=== PATIENT | female | born 1950 | race Caucasian/White ===

== ENCOUNTER 2020-07-01 12:26 | Emergency (ER) | payer OTHER ==
[2020-07-01 13:28] LABS: Protime INR 0.96
--- NOTE | 2020-07-01 13:47 | RAD REPORT ---
EXAM DESCRIPTION: RAD - Chest Single View - 07/01/2020 1:32 pm CLINICAL HISTORY: CHEST PAIN COMPARISON: None TECHNIQUE: AP portable chest image was obtained 07/01/2020 1:32 pm . FINDINGS: Lung volumes are low. No focal lung parenchymal process seen. Widened mediastinum seen due to shallow inspiration portable technique. Mediastinal mass is not suspected. Heart and vasculature are normal. No measurable pleural effusion and no pneumothorax. No acute bony abnormality seen. No ac nirmala aortic findings suspected. IMPRESSION: No acute cardiopulmonary process. Exam is limited somewhat by shallow inspiration portable technique. As clinical findings warrant, fol low-up two-view examination could be performed for further assessment.
[2020-07-01 13:49] LABS: Absolute Lymphocytes (CBC) 1.8 K/uL (0.7-4.9); Basophils % 0.8 % (0-1.3); Hematocrit 39.6 % (36.0-45.0); Lymphocytes % 31.4 % (15.3-44.8); MPV 9.6 fL (7.6-11.3); RBC Red Blood Cell Count 4.14 M/uL (3.86-4.86)
[2020-07-01 14:12] LABS: ALT/SGPT 39 U/L (12-78); AST/SGOT 17 U/L (15-37); Alkaline Phosphatase 91 U/L (45-117); BUN Blood Urea Nitrogen 17 mg/dL (7-18); Bicarbonate 26 mmol/L (21-32); Bilirubin Direct 0.2 mg/dL (0-0.2); Bilirubin Total 0.5 mg/dL (0.2-1.0); Glucose Level 90 mg/dL (74-106); Magnesium 2.2 mg/dL (1.8-2.4); NT PRO-BNP 89 pg/mL (<125); Potassium 4.3 mmol/L (3.5-5.1); Protein, Total 7.6 g/dL (6.4-8.2); Sodium Level 140 mmol/L (136-145); Troponin (Emerg Dept Use Only) < 0.02 ng/mL (0.0-0.045)
--- NOTE | 2020-07-01 16:02 | ER ---
Nurse's Notes [facility] Name: Natalie Valles Age: 70 yrs Sex: Female : 1950 Arrival Date: 07/01/2020 Time: 12:29 Bed 8 Private MD: Ramo Mata E Diagnosis: Chest pain, unspecified Presentation: 07/01 12:33 Chief complaint: Patient states: 2 episodes of CP that last 15-20 min. since last ll1 night. Pain radiates into neck area. None now. No cough or fever. Coronavirus screen: Client denies travel out of the [place] in the last 14 days. At this time, the client does not indicate any symptoms associated with coronavirus-19. Ebola Screen: Patient denies travel to an Ebola-affected area in the 21 days before illness onset. Initial Sepsis Screen: Does the patient meet any 2 criteria? No. Patient's initial sepsis screen is negative. Risk Assessment: Do you want to hurt yourself or someone else? Patient reports no desire to harm self or others. Onset of symptoms was June 30, 2020. 12:33 Method Of Arrival: Ambulatory ll1 12:33 Acuity: YULIYA 3 ll1 13:00 Initial Sepsis Screen: Does the patient have a suspected source of infection? No. sv Patient's initial sepsis screen is negative. Historical: - Allergies: 12:33 No Known Allergies; ll1 - PMHx: 12:33 Arthritis; ll1 - PSHx: 12:33 nodule removed from thumb; Tubal ligation; ll1 - Immunization history:: Flu vaccine is not up to date. - Social history:: Smoking status: Patient denies any tobacco usage or history of. Screenin:40 Abuse screen: Denies threats or abuse. Denies injuries from another. Nutritional sv screening: No deficits noted. Tuberculosis screening: No symptoms or risk factors identified. Fall Risk None identified. Assessment: 12:40 General: Appears in no apparent distress. comfortable, well developed, Behavior is sv calm, cooperative, appropriate for age. Pain: Complains of pain in anterior aspect of left upper chest and left breast Pain radiates to left posterior aspect of neck and left lateral aspect of neck Pain began 1 day ago. Is intermittent. Neuro: Level of Consciousness is awake, alert, obeys commands, Oriented to person, place, time, situation, Moves all extremities. Full function. Cardiovascular: Patient's skin is warm and dry. Rhythm is sinus bradycardia. Respiratory: Airway is patent Respiratory effort is even, unlabored, Respiratory pattern is regular, symmetrical. Derm: Skin is normal. 14:15 Reassessment: Patient appears in no apparent distress at this time. No changes from sv previously documented assessment. Patient and/or family updated on plan of care and expected duration. Pain level reassessed. Patient is alert, oriented x 3, equal unlabored respirations, skin warm/dry/pink. 15:20 Reassessment: Patient appears in no apparent distress at this time. No changes from sv previously documented assessment. Patient and/or family updated on plan of care and expected duration. Pain level reassessed. Patient is alert, oriented x 3, equal unlabored respirations, skin warm/dry/pink. 16:30 Reassessment: Patient appears in no apparent distress at this time. No changes from sv previously documented assessment. Patient and/or family updated on plan of care and expected duration. Pain level reassessed. Patient is alert, oriented x 3, equal unlabored respirations, skin warm/dry/pink. Vital Signs: 12:33 BP 164 / 85; Pulse 77; Resp 17; Temp 98.5; Pulse Ox 98% ; Weight 79.83 kg; Height 5 ft. ll1 5 in. (165.10 cm); Pain 0/10; 13:00 BP 146 / 66; Pulse 57; Resp 17; sv 13:45 BP 141 / 62; Pulse 61; Resp 13; Pulse Ox 98% ; sv 15:22 BP 145 / 70; Pulse 60; Resp 18; Pulse Ox 100% ; sv 16:31 BP 136 / 67; Pulse 55; Resp 18; Pulse Ox 99% on R/A; em 12:33 Body Mass Index 29.29 (79.83 kg, 165.10 cm) ll1 ED Course: 12:29 Patient arrived in ED. mr 12:29 Ramo Mata MD is Private Physician. mr 12:33 Britton Saleh MD is Attending Physician. kdr 12:33 Arm band placed on Patient placed in an exam room, on a stretcher. ll1 12:35 Triage completed. ll1 12:36 Ngozi Rodrigues RN is Primary Nurse. sv 12:40 Patient has correct armband on for positive identification. Placed in gown. Bed in low sv position. Call light in reach. Side rails up X2. gastroenterologist on. Pulse ox on. NIBP on. 12:40 EKG done, by ED staff, reviewed by Britton Saleh MD. Patient maintains SpO2 saturation sv greater than 95% on room air. 12:45 Inserted saline lock: 20 gauge in right antecubital area, using aseptic technique. vg1 Blood collected. 13:32 XRAY Chest (1 view) In Process Unspecified. EDMS 15:23 Troponin (emerg Dept Use Only): 2 hours from initial draw Sent. 3 16:00 Ramo Mata MD is Referral Physician. kdr 16:01 Alhaji Rolon MD is Referral Physician. kdr 16:31 No provider procedures requiring assistance completed. IV discontinued, intact, em bleeding controlled, No redness/swelling at site. Pressure dressing applied. Administered Medications: No medications were administered Outcome: 16:02 Discharge ordered by MD. kdr 16:31 Discharged to home ambulatory, with family. em 16:31 Condition: good 16:31 Discharge instructions given to patient, Instructed on discharge instructions, follow up and referral plans. Demonstrated understanding of instructions, follow-up care. 16:32 Patient left the ED. em Signatures: Dispatcher [employer] EDIL Ngozi Rodrigues, RN Britton Espino MD MD kdr Rivera, Mary mr Munoz, Edgar, RN RN Bernadette Guan [facility] Kitty Horn RN RN vg1 Luis Nugent RN RN ll1
--- NOTE | 2020-07-01 16:03 | EDPHYS ---
Physician Documentation [facility] Name: Natalie aVlles Age: 70 yrs Sex: Female : 1950 Arrival Date: 07/01/2020 Time: 12:29 Bed 8 Private MD: Ramo Mata E ED Physician Britton Saleh HPI: 07/02 11:29 This 70 yrs old Female presents to ER via Ambulatory with complaints of Chest kdr Pain. 11:29 The patient or guardian reports chest pain that is located primarily in the anterior kdr chest wall, left. Onset: suddenly, yesterday, The patient has had two episodes that lasted approximately 15 minutes and then resolved. She was not SOB, diaphoretic or nauseated with either episode. The pain radiates to left neck, left side of face. 11:35 Associated signs and symptoms: Pertinent positives: Pertinent negatives: cough, kdr diaphoresis, dizziness, nausea, shortness of breath. The chest pain is described as aching, sharp. Duration: The patient or guardian reports multiple episodes, approximately 2 episodes since symptom onset, that are intermittent, that wax and wane, with no pattern, the episodes last approximately 15 minute(s). Severity of pain: At its worst the pain was mild moderate just prior to arrival, in the emergency department the pain has resolved. The patient has not experienced similar symptoms in the past. The patient has not recently seen a physician. Historical: - Allergies: 07/01 12:33 No Known Allergies; ll1 - PMHx: 12:33 Arthritis; ll1 - PSHx: 12:33 nodule removed from thumb; Tubal ligation; ll1 - Immunization history:: Flu vaccine is not up to date. - Social history:: Smoking status: Patient denies any tobacco usage or history of. ROS: 07/02 11:35 Constitutional: Negative for fever, chills, and weight loss, Eyes: Negative for injury, kdr pain, redness, and discharge, Neck: Negative for injury, pain, and swelling, Respiratory: Negative for shortness of breath, cough, wheezing, and pleuritic chest pain, Abdomen/GI: Negative for abdominal pain, nausea, vomiting, diarrhea, and constipation, Back: Negative for injury and pain, : Negative for injury, bleeding, discharge, and swelling, MS/Extremity: Negative for injury and deformity, Skin: Negative for injury, rash, and discoloration, Neuro: Negative for headache, weakness, numbness, tingling, and seizure activity. Psych: Negative for depression, anxiety, suicide ideation, homicidal ideation, and hallucinations, Allergy/Immunology: Negative for hives, rash, and allergies, Endocrine: Negative for neck swelling, polydipsia, polyuria, polyphagia, and marked weight changes, Hematologic/Lymphatic: Negative for swollen nodes, abnormal bleeding, and unusual bruising. Cardiovascular: Positive for chest pain, Negative for edema, orthopnea, palpitations, paroxysmal nocturnal dyspnea. Exam: 07/01 19:09 ECG was reviewed by the Attending Physician. kdr 07/02 11:35 Constitutional: This is a well developed, well nourished patient who is awake, alert, kdr and in no acute distress. Head/Face: Normocephalic, atraumatic. Eyes: Pupils equal round and reactive to light, extra-ocular motions intact. Lids and lashes normal. Conjunctiva and sclera are non-icteric and not injected. Cornea within normal limits. Periorbital areas with no swelling, redness, or edema. Neck: Trachea midline, no thyromegaly or masses palpated, and no cervical lymphadenopathy. Supple, full range of motion without nuchal rigidity, or vertebral point tenderness. No Meningismus. Chest/axilla: Normal chest wall appearance and motion. Nontender with no deformity. No lesions are appreciated. Cardiovascular: Regular rate and rhythm with a normal S1 and S2. No gallops, murmurs, or rubs. Normal PMI, no JVD. No pulse deficits. Respiratory: Lungs have equal breath sounds bilaterally, clear to auscultation and percussion. No rales, rhonchi or wheezes noted. No increased work of breathing, no retractions or nasal flaring. Abdomen/GI: Soft, non-tender, with normal bowel sounds. No distension or tympany. No guarding or rebound. No evidence of tenderness throughout. Back: No spinal tenderness. No costovertebral tenderness. Full range of motion. Skin: Warm, dry with normal turgor. Normal color with no rashes, no lesions, and no evidence of cellulitis. MS/ Extremity: Pulses equal, no cyanosis. Neurovascular intact. Full, normal range of motion. Neuro: Awake and alert, GCS 15, oriented to person, place, time, and situation. Cranial nerves II-XII grossly intact. Motor strength 5/5 in all extremities. Sensory grossly intact. Cerebellar exam normal. Normal gait. Psych: Awake, alert, with orientation to person, place and time. Behavior, mood, and affect are within normal limits. Vital Signs: 07/01 12:33 BP 164 / 85; Pulse 77; Resp 17; Temp 98.5; Pulse Ox 98% ; Weight 79.83 kg; Height 5 ft. ll1 5 in. (165.10 cm); Pain 0/10; 13:00 BP 146 / 66; Pulse 57; Resp 17; sv 13:45 BP 141 / 62; Pulse 61; Resp 13; Pulse Ox 98% ; sv 15:22 BP 145 / 70; Pulse 60; Resp 18; Pulse Ox 100% ; sv 16:31 BP 136 / 67; Pulse 55; Resp 18; Pulse Ox 99% on R/A; em 12:33 Body Mass Index 29.29 (79.83 kg, 165.10 cm) ll1 MDM: 16:02 Patient medically screened. kdr 07/02 11:35 Data reviewed: vital signs, nurses notes, EMS record, lab test result(s), EKG, kdr radiologic studies. Counseling: I had a detailed discussion with the patient and/or guardian regarding: the historical points, exam findings, and any diagnostic results supporting the discharge/admit diagnosis, lab results, radiology results, the need for outpatient follow up. Physician consultation: Alhaji Rolon MD regarding consult, patient's condition, need to evaluate the patient as soon as possible, outpatient follow-up, and will see patient in office, tomorrow. 07/01 12:34 Order name: Basic Metabolic Panel; Complete Time: 14:48 kdr 07/01 12:34 Order name: CBC with Diff; Complete Time: 13:59 kdr 07/01 12:34 Order name: LFT's; Complete Time: 14:48 kdr 07/01 12:34 Order name: Magnesium; Complete Time: 14:48 kdr 07/01 12:34 Order name: NT PRO-BNP; Complete Time: 14:48 kdr 07/01 12:34 Order name: PT-INR; Complete Time: 13:59 kdr 07/01 12:34 Order name: Troponin (emerg Dept Use Only); Complete Time: 14:48 kdr 07/01 12:34 Order name: XRAY Chest (1 view); Complete Time: 13:59 kdr 07/01 12:34 Order name: EKG; Complete Time: 12:35 kdr 07/01 12:34 Order name: Cardiac monitoring; Complete Time: 12:48 kdr 07/01 12:34 Order name: EKG - Nurse/Tech; Complete Time: 12:48 [facility] 07/01 12:34 Order name: IV Saline Lock; Complete Time: 13:12 kdr 07/01 12:34 Order name: Labs collected and sent; Complete Time: 13:12 kdr 07/01 13:39 Order name: Troponin (emerg Dept Use Only): 2 hours from initial draw; Complete Time: kdr 15:59 07/01 12:34 Order name: O2 Per Protocol; Complete Time: 12:48 kdr 07/01 12:34 Order name: O2 Sat Monitoring; Complete Time: 12:48 [facility] 07/01 13:13 Order name: Labs - recollect needed; Complete Time: 14:18 sv EC/30 19:09 Rate is 79 beats/min. Rhythm is regular, Sinus Rhythm with No ectopy, Left bundle kdr branch block. QRS [place] is Normal. IN interval is normal. QRS interval is normal. QT interval is normal. Clinical impression: NSR w/ Non-specific ST/T Changes and No evidence of ischemia. Administered Medications: No medications were administered Disposition: 07/01/20 16:02 Discharged to Home. Impression: Chest pain, unspecified. - Condition is Fair. - Discharge Instructions: Nonspecific Chest Pain, [id number]. - Medication Reconciliation Form, Thank You Letter form. - Follow up: Ramo Mata MD; When: 2 - 3 days; Reason: If symptoms return, Further diagnostic work-up, Recheck today's complaints, Continuance of care, Re-evaluation by your physician. Follow up: Alhaji Rolon MD; When: 2 - 3 days; Reason: If symptoms return, Further diagnostic work-up, Recheck today's complaints, Continuance of care, Re-evaluation by your physician. - Problem is new. - Symptoms have improved. Signatures: Dispatcher [employer] Ngozi Dewitt RN RN Britton Saleh MD MD [facility] Parker Walton, RN RN em Luis Nugent RN RN ll1 Corrections: (The following items were deleted from the chart) 16:32 16:02 07/01/2020 16:02 Discharged to Home. Impression: Chest pain, unspecified. em Condition is Fair. Forms are Medication Reconciliation Form, Thank You Letter, Antibiotic Education, Prescription Opioid Use. Follow up: Ramo Mata; When: 2 - 3 days; Reason: If symptoms return, Further diagnostic work-up, Recheck today's complaints, Continuance of care, Re-evaluation by your physician. Follow up: Alhaji Rolon; When: 2 - 3 days; Reason: If symptoms return, Further diagnostic work-up, Recheck today's complaints, Continuance of care, Re-evaluation by your physician. Problem is new. Symptoms have improved. kdr
[2020-07-01 16:48] VITALS: TEMP 98.5
[2020-07-01 16:54] VITALS: BP 136/67; O2SAT 99
== END 2020-07-01 16:32 | disposition home or self-care (01) ==
LOC: ER 12:26
DX: R07.9 Chest pain, unspecified (principal)
CPT/HCPCS: 36415; 71045; 80048; 80076; 83735; 83880; 84484; 85025; 85610; 93005; 99285

== ENCOUNTER 2020-07-23 08:04 | Day surgery (SDC) | payer OTHER ==
[2020-07-21 14:37] LABS: Protime INR 0.96
[2020-07-21 16:17] LABS: Potassium 4.4 mmol/L (3.5-5.1)
[2020-07-21 16:36] LABS: Absolute Lymphocytes (CBC) 1.7 K/uL (0.7-4.9); Basophils % 0.5 % (0-1.3); Hematocrit 38.1 % (36.0-45.0); Lymphocytes % 29.3 % (15.3-44.8); RBC Red Blood Cell Count 3.89 M/uL (3.86-4.86)
[2020-07-21 17:27] LABS: White Blood Cell Scan OK (OK)
[2020-07-21 17:28] LABS: Blood Morphology Comment NOT SEEN (NOT SEEN); Platelet Estimate ADEQ
[2020-07-23] MEDS ORDERED: NA CHLORIDE 0.9% 500 ML ONE (08:11)
[2020-07-23] MEDS ORDERED: HEPA 1000U/500MLS 1,000 UNIT/500 ML BAG IV ONE (11:06)
[2020-07-23] MEDS ORDERED: MIDAZOLAM HCL 2 MG/2 ML INJ ONE ×2 (11:12→11:23)
[2020-07-23] MEDS ORDERED: NA CHLORIDE 0.9% 0 ML ONE (11:13)
[2020-07-23] MEDS ORDERED: FENTANYL CITR 100 MCG/2 ML ONE (11:13)
[2020-07-23] MEDS ORDERED: ATROPINE SULF 1 MG/10 ML SYR IV ONE (11:13)
--- NOTE | 2020-07-23 12:31 | OP ---
Surgeon: Alhaji Rolon MD Weigh Boss: Irlanda Villalta. Angiography of the right common femoral artery was normal. Angio-Seal was used to close the case. T he patient will remain in the hospital for 2 hours of bedrest. She will go home after that on her ho me medication and I will see her in the office in the next 2 weeks. The patient admitted to the [facility] this morning as an outpatient. Procedures: Left heart catheterization, selective coronary arteriogram. Indication For Procedure: Chest pain and positive stress test. History Of Present Illness: Ms. Valles is 70, had come to the emergency room with chest pain and sent to my office for an outpatient stress test which was positive in the anteroseptal region. Her pain was still atypical nevertheless. But she was brought to the [facility] today as an outpatient, pr epped and draped in the routine sterile fashion. Given Versed for IV sedation. She had a 6-Kittitian s cornelius introduced in the right common femoral artery successfully using the Seldinger technique and 10 cc of xylocaine. Herson catheter left and right, JL4 and JR4 were used to cannulate the left main and right main respectively. She was found to have a 20%-30% LAD in the mid region. Normal circumfl ex and normal RCA. She was right dominant. No significant focal stenosis. A 6-Kittitian sheath and ca theters were used. There were no complications. Blood Loss: 5 mL. Postoperative Diagnoses: Mild coronary artery disease. Plan: To continue medical therapy. Anesthesia: Total conscious sedation was 30 minutes. SASCHA/EYAL Voice ID: [id number] Report ID: [id number]
[2020-07-23 13:23] VITALS: TEMP 98
[2020-07-23 14:37] VITALS: BP 145/81; O2SAT 100
== END 2020-07-23 14:22 | disposition home or self-care (01) ==
LOC: CCL 08:04
DX: I25.10 Atherosclerotic heart disease of native coronary artery without angina pectoris (principal); E78.5 Hyperlipidemia, unspecified; Z20.828 Contact with and (suspected) exposure to other viral communicable diseases
CPT/HCPCS: 85025; 80048; 36415; 85610; 85730; 93454; U0002; C1893; C1760; J2250; J3010; J7040; J1644; J0583

== ENCOUNTER 2021-11-30 07:23 | Day surgery (SDC) | payer MEDICARE ==
[2021-11-24 12:29] LABS: Urine Appearance CLEAR (Clear); Urine Bilirubin NEGATIVE (Negative); Urine Blood NEGATIVE (Negative); Urine Color YELLOW (Yellow); Urine Glucose NEGATIVE (Negative); Urine Protein NEGATIVE (Negative); Urine Urobilinogen 0.2 mg/dL (0.2-1.0); Urine pH 5.5 (5.0-7.0)
[2021-11-24 12:32] LABS: Urine Microscopic Reflex NO UMIC
[2021-11-24 12:34] LABS: Potassium 4.2 mmol/L (3.5-5.1)
[2021-11-24 12:41] LABS: Protime INR 0.87
[2021-11-24 12:48] LABS: Hematocrit 23.4 % (36.0-45.0); Lymphocytes % 28.1 % (15.3-44.8); MPV 9.3 fL (7.6-11.3); RBC Red Blood Cell Count 2.18 M/uL (3.86-4.86)
[2021-11-24 13:21] LABS: Anisocytosis 1+; Blood Morphology Comment NOTED (NOT SEEN); Macrocytosis 1+; Platelet Estimate ADEQ; White Blood Cell Scan OK (OK)
[2021-11-30] MEDS ORDERED: CEFAZOLIN/SWI 2gm 2 GM/20 ML SYR ONE (07:33)
[2021-11-30] MEDS ORDERED: Ringers Lactate 1,000 ML IV ONE ×2 (07:33→12:01)
[2021-11-30] MEDS ORDERED: ROCURONIUM 50 MG/5 ML VIAL IV ONE (07:57)
[2021-11-30] MEDS ORDERED: dexAMETHasone 10 MG/ML VIAL ONE (07:57)
[2021-11-30] MEDS ORDERED: LIDOCAINE 2% MPF 5 ML VIAL ONE (07:57)
[2021-11-30] MEDS ORDERED: ONDANSETRON 4 MG/2 ML VIAL ONE (07:57)
[2021-11-30] MEDS ORDERED: MIDAZOLAM HCL 2 MG/2 ML INJ ONE (07:57)
[2021-11-30] MEDS ORDERED: NS 0.9% VIAL 10 ML ONE (07:57)
[2021-11-30] MEDS ORDERED: propofoL 200 MG/20 ML VIAL IV ONE (07:57)
[2021-11-30] MEDS ORDERED: FENTANYL CITR 250 MCG/5 ML ONE (07:57)
[2021-11-30] MEDS ORDERED: KETAMINE HCL 500 MG/5 ML VIAL ONE (07:57)
[2021-11-30] MEDS ORDERED: NA CHLORIDE 0.9% 100 ML IV ONE (08:21)
[2021-11-30] MEDS ORDERED: LIDOCAINE 1% W/EPI 1:100,000 MDV 50 ML VIAL ONE (08:21)
[2021-11-30] MEDS ORDERED: CEFAZOLIN SODIUM 1 GM/VIAL ONE ×2 (08:21→12:23)
[2021-11-30] MEDS: VASOPRESSIN 20 UNIT/ML VIAL ONE ×2 (09:33→10:00)
[2021-11-30] MEDS ORDERED: GLYCOPYRROLATE 0.2 MG/ML SYR ONE ×3 (09:48→13:07)
[2021-11-30] MEDS ORDERED: VECURONIUM 10 MG/VIAL IV ONE (10:05)
[2021-11-30] MEDS ORDERED: EPHEDRINE SULF 50 MG/ML VIAL ONE (12:01)
[2021-11-30] MEDS ORDERED: FENTANYL CITR 100 MCG/2 ML ONE (12:09)
[2021-11-30] MEDS ORDERED: METHYLENE BLUE 0.5% 10 ML AMP ONE (12:22)
[2021-11-30] MEDS ORDERED: NEOSTIGMINE 1 MG/ML -5 ML ONE (13:07)
[2021-11-30] MEDS ORDERED: ONDANSETRON 4 MG/2 ML VIAL IV PRN (13:35)
[2021-11-30] MEDS ORDERED: PROMETHAZINE INJ 25 MG/ML AMP IV PRN (13:35)
--- NOTE | 2021-11-30 13:45 | P.BOP ---
Preoperative diagnosis: stage 3 uterovaginal prolapse, NATALEE Postoperative diagnosis: same Primary procedure: bilat SSLF hysteropexy, ant repair w/ biologic graft augmentation Secondary procedure: posterior and PB repairs, MUS (TVT-O) cystoscopy Change Over: Senait Lopez Estimated blood loss: 100 Specimen: none Findings: 0+2-1/5/mod/8.5/0/0/0-3 Anesthesia: General Complications: None Drain(s): Urinary catheter Implants: coloplast biologic graft, TVT-O Fluids & blood products: 2.6L LR; UO 1250 Transferred to: Recovery Room Condition: Good
[2021-11-30] MEDS ORDERED: IBUPROFEN 400 MG TAB PO PRN (14:00)
[2021-11-30] MEDS ORDERED: Ringers Lactate 1,000 ML IV SCH (14:00)
[2021-11-30 14:44] LABS: Albumin 3.4 g/dL (3.4-5.0); Bilirubin Total 0.4 mg/dL (0.2-1.0); Potassium 3.5 mmol/L (3.5-5.1); Protein, Total 6.3 g/dL (6.4-8.2)
[2021-11-30] MEDS ORDERED: KETOROLAC 30 MG/ML INJ ONE (15:27)
[2021-11-30 16:24] LABS: Absolute Lymphocytes (CBC) 0.7 K/uL (0.7-4.9); Hematocrit 36.3 % (36.0-45.0); Lymphocytes % 5.6 % (15.3-44.8); MPV 8.5 fL (7.6-11.3)
[2021-11-30 16:55] VITALS: BMI 29.0
[2021-11-30 17:01] LABS: Blood Morphology Comment NOT SEEN (NOT SEEN); Platelet Estimate ADEQ; White Blood Cell Scan OK (OK)
[2021-11-30] MEDS: ACETAMINOPHEN 500 MG TAB PO PRN (18:56)
[2021-11-30] MEDS: MORPHINE 4 MG/ML SYR IV PRN (20:18)
[2021-11-30 20:26] VITALS: O2SAT 96
[2021-11-30] MEDS ORDERED: DOCOSAHEXANOIC AC/EPA 1000 MG PO SCH (21:00)
[2021-12-01] MEDS ORDERED: CEFAZOLIN SODIUM 1 GM/VIAL ONE (03:49)
[2021-12-01] MEDS ORDERED: NA CHLORIDE 0.9% 50 ML ONE (03:50)
[2021-12-01] MEDS: CEFAZOLIN 1 GM in NA CHLORIDE 0.9% 50 ML IVPB SCH ×2 (03:51→09:37)
[2021-12-01 06:22] LABS: Potassium 3.8 mmol/L (3.5-5.1)
[2021-12-01] MEDS: MORPHINE 4 MG/ML SYR IV PRN (07:33)
[2021-12-01 07:49] VITALS: BP 123/60; TEMP 97.5
[2021-12-01] MEDS ORDERED: HOME MED 1 EA UNK (Estradiol [Estradiol] 42.5 GM Cream.Appl) VAG SCH (09:00)
[2021-12-01] MEDS ORDERED: CEFAZOLIN 1 GM in NA CHLORIDE 0.9% 50 ML IVPB ONE (09:30)
[2021-12-01] MEDS: ACETAMINOPHEN 500 MG TAB PO PRN (09:38)
--- NOTE | 2021-12-02 09:03 | OP ---
Date of Procedure: 11/30/2021 Surgeon: Jocelin Beal MD Recreational Director: Senait Barcenas Preoperative Diagnoses: Stage III uterovaginal prolapse and stress urinary incontinence. Postoperative Diagnoses: Stage III uterovaginal prolapse and stress urinary incontinence. Procedures Performed: 1.Bilateral sacrospinous ligament fixation and hysteropexy. 2.Anterior repair with biologic graft augmentation. 3.Posterior wall and perineal body defect repairs. 4.Midurethral sling, tension-free vaginal tape-obturator, and cystoscopy. Estimated Blood Loss: 100 Specimen: No specimen. Complications: No complications. Drains: Ko catheter. Implants: Coloplast biologic graft and TVT-O. Patient's Condition: Stable. Urine Output: 250 Fluids: 2.6 L Findings: 0, +2, -1, 5, moderate, 8.5, 0, 0, and -3. She was transferred to the recovery room in stable condition. Indications: The patient is a -uvmi-zgl female who presented with symptoms of prolapse and was evaluated by urodynamic testing, ultrasound and sampling, and bladder evaluation. She was offer ed the options of treatment with pessary treatment with reconstruction or closure. She preferred to have reconstructive surgery. We discussed about both laparoscopic abdominal and vaginal repairs. Lew landaverde wanted to proceed with a vaginal repair understanding that the chance of recurrence could be up to 20% to 30%. Absence of long-term data with biologic graft reviewed with the patient as well. She ne eded midurethral sling to prevent . She was consented and brought to the hospital. Procedure In Detail: After informed consent was re-verified with her and her , she was taken back to the OR, placed in a supine fashion on the table, and general anesthesia was given. She was p laced in the dorsal lithotomy position using Maxi stirrups. The lower abdomen, vulva, vagina, and p erineum were prepped and draped in a sterile fashion. Ko was placed to drain the bladder and retr acted superiorly. POP-Q was done. Vaginal vault was reviewed at this time. Her POP-Q is as dictate d above, so she needed apical anterior support, especially through the anterior approach. Definitely central cystocele was seen, but there were also paravaginal defects on both sides. Plan was to start with the anterior repair. The urethrovesical junction was identified and slightly proximal to it, an Allis clamp was placed and another Allis clamp right in front of the cervix, a midline incision was made after injecting dilute vasopressin 40 cc in the anterior compartment . Scalpel was used to make the incision and extended with Metzenbaum scissors. Bladder dissected aw ay to the paravaginal spaces past the sulcus, then entering the pararectal space. Ischial spine bare ly palpable, difficult to palpate the spine. Medially, dissection was performed along the area of th e coccygeus muscle and found sacrospinous ligament. Once this was identified, the rectum was pushed medially clearing for the anchor point as well as laterally and superiorly to the ischial spine to cl ear up the white line. Then, similar dissection performed on the left side and the biologic graft wa s taken and soaked. Three 2-0 Vicryl sutures were placed at the proximal end to the cervix and later al aspects of the cervix. Then, anteriorly, 3 PDS sutures 2-0 were laced at the level of the bladder neck on both sides. The sacrospinous sutures were taken using the anchor. The first bul let had not fired probably, so a second one was placed after removing the old one out. Once this was all in place at a good depth, then went on the opposite side and did the same thing. Then, the biol ogic graft was taken and cut as a trapezoid with 18 x 6 x 6, and had to be shortened probably by half a centimeter at the distal end, so that the anterior vaginal wall would not be sagging. Then, the graft was attached to the sacrospinous and 2 bullets were placed, 1 on each side on the par avaginal space and the white line, well anchored once all this was done, then the graft was tied to all the sutures. The proximal Prolene sutures were tied, followed by the sacrospinous sutur es. Then, paravaginal sutures were placed as well. They were kept in place, and tied the proximal s utures and tied the sacrospinous ligaments one after the other, and the paravaginal suture s were tied. There was excellent closure and left POP-Q was almost normal. The vaginal epithelium w as not trimmed and closed in a continuous running locked fashion. No shortening of the canal was ant icipated. Then, attention directed to and the vaginal epithelium was closed with the help of 2-0 Dontrell ryl sutures. The midurethral area was injected with dilute vasopressin. Vertical incision in the midurethral area was made 1 cm with a scalpel, then dissection was carried to the ipsilateral obturator space ___ horizontal and vertical planes. Once the obturator membrane was perforated through the _the wing guide was placed retracing the direction and spike passed along the inferior pubic ramus ex iting at a point avoiding the . Similar pass was taken on the other side. Then, the plastic dilator was passed through and brought o ut. The plastic sheath and mesh were cut. The mesh was tensioned in the center using Allis. Then w ent ahead and removed the sheaths on both sides after tensioning properly. Once it was tensioned in place, it looked like it had pulled up the apparent urethrocele. Attention was directed to the posterior repair. A triangular incision was made from the posterior co mmissure to the perineum and then another triangle on the top of the lower one-third on the vaginal e pithelium. Once this was done, the Allis clamps were placed. Dilute vasopressin was given at the [facility]. Then, epithelium was excised in both these areas. Connective tissue dissected down. There was no evidence of any enterocele. There was a significant detachment from the left lateral wall as well as the perineal body with an avulsion tear, so closed the perineal body with 2-0 Vicryl sutures x4. Then, 2-0 PDS was used to close the fascia from the top. Once all this was done, de fect was identified and repaired, then there was excellent support, reattachment back to the perineal body, and there was a good perineal body. No evidence of any vaginal epithelial skin that had to be excised in the perineum, for vulvar dysplasia. Ko was left in place. Packing was placed. Instrument, needle, and sponge counts were correct at the end of the case finally after looking for sponge. The patient's condition was stable. She was r ecovered from anesthesia and taken to PACU in stable condition. KHALIDA Voice ID: [id number] Report ID: [id number]
== END 2021-12-01 10:35 | disposition home or self-care (01) ==
LOC: OR 07:23 → 2ND-WC 13:35 → OR 12-01 10:35
PROVIDERS: ATTEND Obstetrics & Gynecology
PROC: 0JUC0JZ Supplement of Pelvic Region Subcutaneous Tissue and Fascia with Synthetic Substitute, Open Approach (ICD-10-PCS; 2021-11-30)
PROC: 0JQC0ZZ Repair Pelvic Region Subcutaneous Tissue and Fascia, Open Approach (ICD-10-PCS; 2021-11-30)
PROC: 0HQ9XZZ Repair Perineum Skin, External Approach (ICD-10-PCS; 2021-11-30)
PROC: 0USG7ZZ Reposition Vagina, Via Natural or Artificial Opening (ICD-10-PCS; 2021-11-30)
PROC: 0TSD0ZZ Reposition Urethra, Open Approach (ICD-10-PCS; principal; 2021-11-30 08:30)
DX: N81.2 Incomplete uterovaginal prolapse (principal); N95.2 Postmenopausal atrophic vaginitis; N81.81 Perineocele; N81.6 Rectocele; N39.3 Stress incontinence (female) (male); Z20.822 Contact with and (suspected) exposure to COVID-19
CPT/HCPCS: 85025 ×2; 80048 ×2; 36415 ×3; 86900; 83735; 86850; 85610; 86901; 85730; 81003; 80053; 94010; 57288; 57260; 57267; 57282; U0003; J2704; J2250; J3010 ×2; J1100; J2710; J0690 ×5; J7120 ×4; J2405

== ENCOUNTER → 2022-07-22 | Day surgery (SDC) | payer MEDICARE ==
--- NOTE | 2022-07-22 19:44 | RAD REPORT ---
EXAM DESCRIPTION: US - BREAST/AXILLA, LIMITED - 07/22/2022 11:06 am CLINICAL HISTORY: N63.2 COMPARISON: No comparisons FINDINGS: A limited pre biopsy planning sonogram of the left breast was performed. The largely echogenic encapsulated 2 cm lesion with cystic area was again seen in the upper outer asp ect of the left breast. It shows no aggressive features on today's ultrasound. This is likely benign. The previously noted shadowing 11 mm lesion 12 o'clock was not well seen on today's examination and w hat was seen was very vague. Because of this, no biopsy was performed at this time. IMPRESSION: 2 cm lesion in the upper outer aspect left breast is probably benign. The 11 mm previous ly noted hypoechoic lesion with shadowing is not well seen on today's study and not well-defined for biopsy purposes. Biopsy was deferred at this time and six-month follow-up left breast sonography is r ecommended. This was discussed with the patient at the time of ultrasound. BI-RAD: 3, probably benign Left whole breast ultrasound follow-up recommended in 6 months. ResultCode: PB6
== END ==
LOC: DS 09:00
PROVIDERS: ATTEND Surgery
DX: N63.21 Unspecified lump in the left breast, upper outer quadrant (principal); Z53.8 Procedure and treatment not carried out for other reasons
CPT/HCPCS: 76642

== ENCOUNTER 2024-05-01 05:57 | Observation (INO) | payer MEDICARE ==
[2024-04-26 09:48] LABS: Absolute Eosinophils 0.1 K/uL (0-0.5); Absolute Monocytes 0.5 K/uL (0.1-1.3); Absolute Neutrophil 2.9 K/uL (1.8-8.0); Basophils % 0.6 % (0-1.3); Eosinophils % 2.9 % (0-4.4); Hematocrit 40.7 % (36.0-45.0); Hemoglobin 13.9 g/dL (12.0-15.0); Lymphocytes % 21.8 % (15.3-44.8); MCH 32.7 pg (27.0-35.0); MCV 96.1 fL (80-100); MPV 8.5 fL (7.6-11.3); Monocytes % 10.3 % (3.3-12.3); Neutrophils % 64.4 % (41.7-73.7); Nucleated Red Blood Cells % 0.1 % (0-0); Platelets 224 thou/uL (152-406); RBC Red Blood Cell Count 4.24 M/uL (3.86-4.86); Red Cell Distribution Width 12.9 % (12.1-15.2)
[2024-04-26 09:58] LABS: PT Prothrombin Time 11.1 SECONDS (9.4-12.5); PTT, Activated Partial Thromb 27.9 SECONDS (24.3-36.9); Protime INR 0.99
--- NOTE | 2024-04-26 12:24 | RAD REPORT ---
EXAM DESCRIPTION: RAD - Chest Pa And Lat (2 Views) - 04/26/2024 9:49 am CLINICAL HISTORY: pre op pending knee arthroplasty. Hypertension COMPARISON: Chest Single View dated 01/04/2023; Chest Single View dated 07/01/2020 TECHNIQUE: PA and lateral views of the chest were obtained. FINDINGS: The lungs are clear. Heart size is normal and central vasculature is within normal limits. No pleural effusion or pneumothorax seen. No acute bony finding noted. IMPRESSION: No acute cardiopulmonary process.
--- NOTE | 2024-04-26 16:43 | EKG ---
Test Date: 2024-04-26 Test Time: 09:28:57 Turnaround Planner: BELIA MEASUREMENT RESULTS: Intervals: Rate: 62 WY: 178 QRSD: 124 QT: 416 QTc: 422 [place]: P: 27 WY: 178 QRS: -63 T: 122 INTERPRETIVE STATEMENTS: Normal sinus rhythm Left axis deviation Left bundle branch block Abnormal ECG Compared to ECG 01/04/2023 15:36:26 No significant changes Electronically Signed On 04-26-24 16:42:33 CDT by Marco Kamara
[2024-05-01] MEDS ORDERED: LIDOCAINE 2% MPF 5 ML VIAL ONE (06:06)
[2024-05-01] MEDS ORDERED: MIDAZOLAM HCL 2 MG/2 ML INJ ONE (06:06)
[2024-05-01] MEDS ORDERED: propofoL 200 MG/20 ML VIAL IV ONE (06:06)
[2024-05-01] MEDS ORDERED: ONDANSETRON 4 MG/2 ML VIAL ONE (06:06)
[2024-05-01] MEDS ORDERED: KETAMINE HCL IN 0.9 % NACL 50 MG/5 ML SYRINGE IV ONE (06:06)
[2024-05-01] MEDS ORDERED: FENTANYL CITR 100 MCG/2 ML ONE (06:06)
[2024-05-01] MEDS: DEXMEDETOMIDINE HCL 200 MCG/2 ML VIAL ONE (06:17)
[2024-05-01] MEDS: LIDOCAINE 1% MPF 5 ML VIAL ONE (06:17)
[2024-05-01] MEDS: EPINEPHRINE 1 MG/ML VIAL ONE (06:17)
[2024-05-01] MEDS: dexAMETHasone 4 MG/ML VIAL ONE (06:17)
[2024-05-01] MEDS: GABAPENTIN 100 MG CAP ONE (06:18)
[2024-05-01] MEDS: BUPIVACAINE 0.25% PF 30 ML VIAL ONE (06:18)
[2024-05-01] MEDS: ACETAMINOPHEN 500 MG TAB ONE (06:18)
[2024-05-01] MEDS: MAGNESIUM SULFATE 1 gm IVPB 1 GM/100 ML BAG IV ONE (06:18)
[2024-05-01] MEDS: Oxycodone HCl/Acetaminophen 5/325 MG TAB ONE (06:18)
[2024-05-01] MEDS: Ringers Lactate 1,000 ML IV ONE ×2 (06:23→09:50)
[2024-05-01] MEDS: TRANEXAMIC ACID 1,000 MG/10 ML VIAL IV ONE (07:27)
[2024-05-01] MEDS ORDERED: GLYCOPYRROLATE 0.2 MG/ML SYR ONE (08:25)
[2024-05-01] MEDS: CEFAZOLIN SODIUM 2 GM/VIAL ONE (08:29)
[2024-05-01] MEDS ORDERED: EPHEDRINE SULF 50 MG/ML VIAL ONE (09:49)
[2024-05-01] MEDS ORDERED: ONDANSETRON 4 MG/2 ML VIAL IV PRN (10:41)
[2024-05-01] MEDS ORDERED: DOCUSATE NA 100 MG CAP PO PRN (10:41)
[2024-05-01] MEDS ORDERED: ACETAMINOPHEN 325 MG TABLET PO PRN (10:41)
--- NOTE | 2024-05-01 10:41 | P.BOP ---
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
--- NOTE | 2024-05-01 10:49 | P.OP ---
Preoperative diagnosis: Left knee osteoarthritis Postoperative diagnosis: Same Primary procedure: Left total knee arthroplasty Anesthesia: General Estimated blood loss: 40 cc Specimen: Left knee bone remnants Findings: See dictation Operative Technique: Indication For Procedure: Natalie is a 74 year-old female presenting to my clinic with signs, symptoms and x-ray findings consistent with severe left knee osteoarthritis. I discussed with the patient at length risks and benefits associated with operative and nonoperative treatment. She had failed conservative treatment measures and had significant difficulties with ADLs secondary to her pain. We discussed operative treatment and elected to proceed with left total knee arthroplasty. She expressed understanding and elected to proceed with operative treatment. Description Of Procedure: After informed consent was obtained, the patient was identified in the preoperative holding area. The left lower extremity was marked. The patient was then taken to the PACU where she underwent a left lower extremity adductor canal block performed by Anesthesia. She was then taken to the operating room, transferred to the operating table in supine fashion, and placed under general anesthesia. The left lower extremity was then prepped and draped in usual sterile fashion. A time-out was initiated. The correct patient and procedure were confirmed and identified. The patient did receive her preoperative prophylactic antibiotics. The left lower extremity was then exsanguinated and tourniquet was inflated to 300 mmHg. Approximately 15 cm longitudinal incision was made centered over the anterior aspect of the left knee. Dissection was then taken to the extensor mechanism and a medial parapatellar arthrotomy was performed. The patella was everted and dislocated laterally and the knee was flexed in the fat pad. Medial and lateral meniscus and ACL were all excised exposing the distal femur. Excess hypertrophic syno vium was also excised within the suprapatellar pouch. The patient had an MRI of her left knee preoperatively for surgical planning and creation of cutting blocks. The cutting block was then placed over the distal femur and pins were then placed. The distal femoral cutting block was then placed over the pins. An hema wing was then used to ensure proper depth cut and the distal femur was then cut. The chamfer cutting guide was then placed over the distal end of the femur. Anterior, posterior cuts as well as anterior and posterior chamfer cuts were then made again confirming proper depth of the cut using an Hema wing. Excess bone remnants were then sent to pathology for further evaluation. Next, attention was taken to the proximal tibia. A tibial jig and tibial cutting block was then placed on proximal aspect of the left tibia and locked into position. Pins were then placed and alignment guide was then used to confirm proper alignment of the cut and then coronal and sagittal planes. Once this was confirmed, the cutting jig was placed over the pins and the proximal tibia was cut. Sizing trays were then selected and size 10 mm spacer was used and there was good overall balance in flexion and extension. Next, the trial implants were then placed using the size 6 standard CR femur and a size E tibia and a 10 mm CR poly. There was overall good range of motion and good stability. The trial implants were then removed. The wound was then irrigated thoroughly with normal saline and the knee was then injected with 20 cc of 0.5% Marcaine both in the posterior capsule and medial and lateral gutters as well as quadriceps tendon and periosteum. The tibia was then punched. The femur was drilled. The cement was then prepared on the back table. Cement was then placed first on the tibial surface followed by size E tibia. Excess cement was removed with [place] elevators. Size 6 standard CR femur was then placed on the distal femur after cement was placed on the distal femur. Excess cement was then removed and a size 10 mm CR trial poly was then placed. The knee was held in extension as the cement hardened. Undersurface of the patella was prepared debriding osteophytes using rongeurs as well as osteophytes. Cement was placed on the undersurface of the patella after it was cut and a size 32 patella was placed. Once the cement was hardened, the knee was ranged, there was good overall stability both in flexion, extension and as well as stability with varus and valgus stresses. Trial poly was then removed and a size 10 mm CR poly was then placed and locked into position. The knee was then ranged again. There was good overall range of motion both for flexion and extension with good stability. The wound was then irrigated again thoroughly with normal saline using pulse lavage. Tourniquet was let down. Hemostasis was achieved using Bovie electrocautery. Extensor mechanism was then approximated using a #1 Vicryl both in interrupted and running fashion. The fascia was then approximated using 0 Vicryl. Subcutaneous tissue was approximated with a 2-0 Vicryl. Skin was approximated using roxann. Sterile dressings were applied. The patient was awakened and transferred back in stable condition Complications: None Implants: Biomet Mónica persona 6 CR femur, E tibia, 10 CR poly, 32 patella Fluids & blood products: Per anesthesia record; tourniquet time 65 minutes at 300 mmHg Transferred to: Recovery Room Condition: Good
[2024-05-01] MEDS: HYDROMORPHONE HCL 1 MG/ML INJ ONE (11:41)
[2024-05-01 11:47] LABS: Hematocrit 39.7 % (36.0-45.0); Hemoglobin 13.3 g/dL (12.0-15.0)
--- NOTE | 2024-05-01 13:43 | RAD REPORT ---
EXAM DESCRIPTION: RAD - Knee Left 2 View - 05/01/2024 11:01 am CLINICAL HISTORY: Post Op COMPARISON: No comparisons TECHNIQUE: Left knee, 2 views. FINDINGS: A left total knee arthroplasty has been performed. Hardware is in expected position. Some soft tissue gas is present. Skin roxann are noted. IMPRESSION: Postoperative left knee with no unexpected finding.
[2024-05-01] MEDS: HYDROCODONE/APAP 7.5/325 MG TAB PO PRN (14:09)
[2024-05-01] MEDS: CEFAZOLIN 1 GM in NA CHLORIDE 0.9% 50 ML IVPB SCH (16:29)
[2024-05-02] MEDS: TRAMADOL HCL 50 MG TAB PO PRN (01:20)
[2024-05-02] MEDS: ENOXAPARIN 30 MG/0.3 ML SQ SCH (06:43)
[2024-05-02 06:47] LABS: Hematocrit 29.8 % (36.0-45.0)
[2024-05-02 07:24] LABS: Hemoglobin 12.7 g/dL (12.0-15.0)
[2024-05-02] MEDS: HOME MED 1 EA UNK (Estradiol [Estradiol] 42.5 GM Cream.Appl) TOP SCH (08:24)
[2024-05-02] MEDS: CELECOXIB 100 MG CAPSULE PO SCH (08:25)
[2024-05-02 09:55] VITALS: O2SAT 92
[2024-05-02 13:54] VITALS: BP 135/66; TEMP 98
== END 2024-05-02 13:59 | disposition home health service (06) ==
LOC: OR 05:57 → 2ND 11:26
PROVIDERS: ADMIT Orthopaedic Surgery Sports Medicine; ATTEND Orthopaedic Surgery Sports Medicine
PROC: 0SRD0J9 Replacement of Left Knee Joint with Synthetic Substitute, Cemented, Open Approach (ICD-10-PCS; principal; 2024-05-01 08:00)
DX: M17.12 Unilateral primary osteoarthritis, left knee (principal)
CPT/HCPCS: 36415; 71046; 80048; 85014; 85018; 85025; 85610; 85730; 88304; 88305; 88311; 93005; 94010; 97116; 97139; 97161; 97530; C1776; G0378; G0379; J0171; J0690; J1100; J1170; J1650; J2001; J2250; J2405; J2704; J3010; J3475; J7120

== ENCOUNTER 2024-07-31 07:02 | Day surgery (SDC) | payer MEDICARE ==
[2024-07-29 09:20] LABS: PT Prothrombin Time 10.7 SECONDS (9.4-12.5); Protime INR 0.95
[2024-07-29 09:27] LABS: Anion Gap 7.5 mEq/L (5.0-15.0); Potassium 4.5 mEq/L (3.5-5.1)
[2024-07-29 10:26] LABS: Absolute Basophils 0.1 K/uL (0-0.5); Absolute Eosinophils 0.2 K/uL (0-0.5); Absolute Lymphocytes (CBC) 0.8 K/uL (0.7-4.9); Absolute Monocytes 0.6 K/uL (0.1-1.3); Absolute Neutrophil 2.9 K/uL (1.8-8.0); Basophils % 1.2 % (0-1.3); Eosinophils % 3.9 % (0-4.4); Hemoglobin 13.3 g/dL (12.0-15.0); Lymphocytes % 18.2 % (15.3-44.8); MCH 35.6 pg (27.0-35.0); MCHC 35.9 g/dL (32.0-36.0); MCV 99.3 fL (80-100); MPV 9.8 fL (7.6-11.3); Monocytes % 12.3 % (3.3-12.3); Neutrophils % 64.4 % (41.7-73.7); Platelets 225 thou/uL (152-406); RBC Red Blood Cell Count 3.72 M/uL (3.86-4.86); Red Cell Distribution Width 13.2 % (12.1-15.2)
[2024-07-31] MEDS ORDERED: ONDANSETRON 4 MG/2 ML VIAL ONE (07:09)
[2024-07-31] MEDS ORDERED: FENTANYL CITR 100 MCG/2 ML ONE (07:09)
[2024-07-31] MEDS ORDERED: LIDOCAINE 2% MPF 5 ML VIAL ONE (07:09)
[2024-07-31] MEDS ORDERED: propofoL 200 MG/20 ML VIAL IV ONE (07:09)
[2024-07-31] MEDS ORDERED: ROCURONIUM 50 MG/5 ML VIAL IV ONE (07:09)
[2024-07-31] MEDS ORDERED: SUCCINYLCHOLINE 20 MG/ML (10 ML) IV ONE (07:34)
[2024-07-31] MEDS ORDERED: DEPO-MEDROL 40 MG/ML IM ONE (07:41)
[2024-07-31] MEDS ORDERED: BUPIVACAINE 0.25% PF 30 ML VIAL ONE (07:42)
[2024-07-31] MEDS: Ringers Lactate 1,000 ML IV ONE (07:45)
[2024-07-31] MEDS: HYDROMORPHONE HCL 1 MG/ML INJ ONE ×2 (08:37→08:56)
--- NOTE | 2024-07-31 08:37 | P.BOP ---
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
--- NOTE | 2024-07-31 09:11 | RAD REPORT ---
Exam:Knee Left 2 View HISTORY: Left knee surgery FINDINGS: No fracture or dislocation seen Left knee arthroplasty in good position. No evidence of loosening. Small joint effusion
[2024-07-31] MEDS: HYDROCODONE/APAP 7.5/325 MG TAB ONE (09:41)
[2024-07-31 09:53] VITALS: BP 149/58; TEMP 97.7; O2SAT 97
== END 2024-07-31 10:15 | disposition home or self-care (01) ==
LOC: OR 07:02
PROVIDERS: ATTEND Orthopaedic Surgery Sports Medicine
PROC: 0SWDXJZ Revision of Synthetic Substitute in Left Knee Joint, External Approach (ICD-10-PCS; principal; 2024-07-31 08:00)
DX: M25.662 Stiffness of left knee, not elsewhere classified (principal); T84.89XA Other specified complication of internal orthopedic prosthetic devices, implants and grafts, initial encounter
CPT/HCPCS: 27570; 85025; 80048; 36415; 85610; 85730; 73560; J2704; J2003; J3010; J1171 ×2; J2405; J7120; J1010